=== PATIENT | male | born 1945 | race Caucasian/White ===

== ENCOUNTER 2017-11-15 18:39 | Emergency (ER) | payer MEDICARE ==
[2017-11-15] MEDS ORDERED: Lorazepam 2 MG/ML VIAL ONE (21:16)
--- NOTE | 2017-11-16 06:35 | HP ---
SHORT STAY SUMMARY DATE OF EVALUATION: 11/16/2017 TIME OF SERVICE: 0100 hours. SHORT STAY SUMMARY CHIEF COMPLAINT: Found down. HISTORY OF PRESENT ILLNESS: Mr. Mccauley is a 72-year-old gentleman who was found down in the yusuf g lot of the [facility]. It was unknown how long he was down. He was seen and e valuated and found to have abnormal labs including lactic acid of 4 and an allegedly a temperature of 102. He subsequently transferred here for treatment. The patient states he was going to see Dr. Yadav, and was supposed to be there before 3 o'clock. When he finally got to where he was going, so they transported him here and "trick him." The patient know s it is 2018, knows Khurram is the President, knows that he is in [facility], but unsure [facility], and per his daughter it is normal baseline mental status. The patient adamantly refused to be admitted and told me to "get the f--- out of the room." Apparently, the patient has been sick for a few days until he got a flu-like illness. Even sent his daughter a picture of a gun and threatened to kill himself a few days ago. She has called the police and sent him out to the house several times they were evaluated, but he was safe to remain home by h imself. The outside ER received ceftriaxone, levofloxacin, and Zosyn. Temperature was 102, pulse was 110, la ctic acid of 4. Normal white blood cell count was transported here. While here, we are called for a dmit, no further workup was done. PAST MEDICAL HISTORY: 1. Chronic kidney disease, status post renal transplant x2, on cyclosporine and prednisone. 2. Chronic low back pain. 3. History of pancreatitis. 4. History of skin cancer of the face. 5. Urinary retention. PAST SURGICAL HISTORY: Include: 1. Renal transplant x2. 2. Nine other major surgeries, though he was too angry to elaborate. HOME MEDICATIONS: 1. Per the list, vitamin D3, Neoral or cyclosporine. 2. Folic acid. 3. Mag oxide. 4. Jasper 3. 5. Prednisone. 6. Amlodipine. 7. Fenofibrate. 8. Atenolol. 9. Docusate. 10. Aspirin 81 mg daily. ALLERGIES: NKDA. FAMILY HISTORY: Negative for clotting or bleeding. There was no immune dysfunction. SOCIAL HISTORY: Daughter said he drinks whiskey daily. No IV drug use or tobacco use. The patient refused to discuss code status with me. His daughter is Darvin Jonas" her phone number is [phone]. The patient is from his and he had 2 children and his older nimo newton, his son, has already passed. Ms. 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 PHYSICAL EXAMINATION: VITAL SIGNS: Temperature 98.3, pulse 95, blood pressure 110/67, respiratory 18, O2 sat 97% on room a ir. GENERAL: He is awake. He is alert. He is oriented to month, year, president, and city. He is unwi lling to discuss any further orientation as he "does need to be educated anymore." HEENT: He is normocephalic. He has evidence of ecchymosis over the right eye. Mucous members are m oist. There is no visible lesion. No thrush. NECK: Supple, no lymphadenopathy, JVD, or thyromegaly. LUNGS: Some faint bibasilar crackles, worse on the left than the right. He has good air movement. No prolonged expiratory phase. No wheezes. ABDOMEN: Soft, is nontender with good bowel sounds. EXTREMITIES: Show cyanosis, no clubbing, no edema. NEUROLOGIC: Status could not be assessed as he would not follow any commands. SKIN: No other rash or lesions noted. MUSCULOSKELETAL: Normal to a brief inspection. I do not see any inflamed joints or ecchymosis other ford. LABORATORY DATA: Sodium 128, potassium 5.1, chloride 97, bicarbonate 16, BUN 41, creatinine 1.5 and glucose of 121, calcium 9.8. Liver functions are normal. Total bilirubin slightly elevated at 2.4, total protein 6.9, albumin 2.6. CBC showed a white count of 10 with normal differential, hemoglobin 7.9, hematocrit of 22.8 and platelet count of 112,000. Ammonium was 17, lactic acid 4.0. CK-MB 1.5, troponin I 0.033 and urinalysis was negative. Chest x-ray showed left lower lobe pneumonia per report, although I did not see the actual report its elf just on the ER notes. ASSESSMENT AND PLAN: 1. Left lower lobe pneumonia, community-acquired, present on admission to the ER. Patient had a flu -like illness. A flu screen at the outside facility was negative. The patient was transferred here after being found down and unconscious in the parking lot. The patient is currently awake and has baseline mental status. He is refusing admit. I discussed wi th him leaving against medical advice. He said he is absolutely leaving and not staying. I did ask him to sign the against medical advice paperwork and he adamantly refused. His daughter was in the r oom and noted so and signed as a witness. We will go ahead and send him home on Levaquin 500 mg marissa y for 7 days, and he is to follow up with Dr. Yadav as soon as possible. 2. Chronic obstructive pulmonary disease, status post renal transplant, on Neoral and prednisone. H e is to continue. 3. Fall from same level. Daughter says he has a lot of problem with the right ankle after surgery m any years ago. The patient himself was unwilling to discuss any problems or preceding issues. 4. History of urinary retention. 5. History of hypertension on atenolol and amlodipine. Recommend to continue. The patient being discharged from the emergency department against medical advice. This will serve a s the admission history and physical and the discharge summary.
== END 2017-11-15 21:45 | disposition left against medical advice (07) ==
LOC: ERS 18:39 → ERHOLD 21:45 → UNDOADMIN 22:00 → ERHOLD 22:00 → UNDODISIN 11-16 01:15
DX: J18.9 Pneumonia, unspecified organism (principal); J44.0 Chronic obstructive pulmonary disease with (acute) lower respiratory infection; Z94.0 Kidney transplant status; I12.9 Hypertensive chronic kidney disease with stage 1 through stage 4 chronic kidney disease, or unspecified chronic kidney disease; N18.9 Chronic kidney disease, unspecified; Z85.828 Personal history of other malignant neoplasm of skin; Z79.82 Long term (current) use of aspirin
CPT/HCPCS: 96374; J2060

== ENCOUNTER 2018-08-12 19:38 | Inpatient (IN) | payer MEDICARE ==
[2018-08-12] MEDS ORDERED: Ondansetron HCl/PF 4 MG/2 ML Vial ONE (20:19)
[2018-08-12] MEDS ORDERED: Nitroglycerin 2% Ointment 1 INCH/1 GM Packet ONE (21:08)
[2018-08-12] MEDS ORDERED: hydrALAZINE 20 MG/ML VIAL SLOW IVP SCH (21:30)
[2018-08-12] MEDS ORDERED: hydrALAZINE 20 MG/ML VIAL SLOW IVP PRN (23:09)
[2018-08-12 23:12] VITALS: BMI 22.0
[2018-08-12] MEDS: Lactated Ringer's 1,000 ML IV SCH (23:24)
[2018-08-12 23:40] LABS: Cardiac Risk 2.4 (Less than 4.5)
[2018-08-13] MEDS ORDERED: Acetaminophen 325 MG TAB PO PRN (02:01)
[2018-08-13] MEDS ORDERED: Ondansetron HCl/PF 4 MG/2 ML Vial IVP PRN (02:01)
[2018-08-13] MEDS ORDERED: Bisacodyl 5 MG TAB PO PRN (02:01)
[2018-08-13] MEDS ORDERED: Morphine 4 MG/ML VIAL ONE (05:29)
[2018-08-13] MEDS: Lactated Ringer's 1,000 ML IV SCH (05:37)
[2018-08-13 06:27] LABS: Anion Gap 16 mmol/L (10-20); BUN (Urea Nitrogen) 36 mg/dL (8.4-25.7); BUN/Creatinine Ratio 10.75; Calc. Creatinine Clearance 19 mL/min (70-130); Calcium 8.9 mg/dL (7.8-10.44); Carbon Dioxide 17 mmol/L (23-31); Chloride 104 mmol/L (98-107); Estimated GFR-MDRD 18; Glucose 217 mg/dL (83-110); Phosphorus 4.6 mg/dL (2.3-4.7); Potassium 6.1 mmol/L (3.5-5.1); Sodium 131 mmol/L (136-145)
[2018-08-13 07:00] LABS: Anisocytosis SLIGHT = 6-15 cells (100X) (0-5/hpf); Band 6 % (5-11); Crenated RBC SLIGHT = 1-5 cells (100X) (None Seen); Hemoglobin 10.1 g/dL (14.0-18.0); Hypochromia SLIGHT = 6-15 cells (100X) (0-5/hpf); Lymphocytes 2 % (21-51); MDiff Complete? YES; Macrocytosis SLIGHT = 6-15 cells (100X) (0-5/hpf); Mean Corpuscular HGB CONC 33.4 g/dL (32.0-36.0); Mean Corpuscular Hemoglobin 35.6 pg (27.0-31.0); Mean Platelet Volume 13.6 fL (7.4-10.4); Monocytes 9 % (0-10); Neutrophil 83 % (42-75); PLT Morphology Comment Appears Decreased; Platelet Count 42 thou/uL (130-400); RBC Distribution Width 16.4 % (11.5-14.5); Red Blood Cell (RBC) Count 2.85 mill/uL (4.70-6.10); Tear Drops SLIGHT = 2-5 cells (100X) (0-1/hpf); White Blood Cell (WBC) Count 24.3 thou/uL (4.8-10.8)
--- NOTE | 2018-08-13 08:46 | HP ---
CHIEF COMPLAINT: Abdominal pain radiating to the back and the patient has been transferred from [place] for pancreatitis. HISTORY OF PRESENT ILLNESS: This is a 72-year-old male with past medical history of cholecystitis, low back pain, pancreatitis, generalized muscle weakness, being admitted for abdominal pain radiating to the back. The patient stated that he was having severe epigastric pain, which began at 0900 the morning of admission and therefore the patient went to [place] and in the ED, the patient was discovered to have acute pancreatitis. The patient denies fever , chills, headaches, chest pain, palpitations, shortness of breath; however, admits to epigastric pain. REVIEW OF SYSTEMS: Positive for epigastric pain, otherwise as documented in HPI. All other systems were reviewed and are negative. PAST MEDICAL HISTORY: Cholecystitis, chronic kidney disease, low back pain, pancreatitis. FAMILY HISTORY: Reviewed and non-contributory to this visit. PAST SURGICAL HISTORY: Two kidney transplants. PSYCHIATRIC HISTORY: No psychiatric history. SOCIAL HISTORY: The patient drinks every day. The patient drinks 5 shots per day, but patient denies any smoking history. ALLERGIES: RAPAMUNE and SIROLIMUS. CURRENT MEDICATIONS: The patient is on vitamin D, mineral, magnesium 400 mg, amlodipine 5 mg, fenofibrate 150 mg, atenolol 50 mg, docusate calcium 240 mg, aspirin 81 mg. PHYSICAL EXAMINATION: VITAL SIGNS: Blood pressure is 203/104, heart rate is 96, respiratory rate 24, temperature of 98.2. GENERAL: The patient is lying in bed, appears to be very anxious, somewhat a little agitated. HEENT: Normocephalic, atraumatic. Pupils are equal, round, and reactive to light. Extraocular movements are intact. No scleral icterus. NECK: Trachea is midline. No JVD. Full range of motion. Mucous membranes are dry. LUNGS: Clear to auscultation bilaterally. No wheezing, no rales, no rhonchi is appreciated. CARDIOVASCULAR: Positive S1, S2, regular rate and rhythm, no murmurs, no gallops or rubs appreciated. ABDOMEN: Patient has severe tenderness with palpation at the abdomen, otherwise positive bowel sounds. No peritoneal signs. No palpable masses. EXTREMITIES: The patient has 5/5 upper extremity strength, good pulses bilaterally, 5/5 lower extremity strength, good pulses bilaterally. NEUROLOGIC: Cranial nerves II through XII grossly intact. No neurologic deficits noted. SKIN: Warm, dry, and intact. PSYCHIATRIC: The patient has normal affect. Alert and oriented x3. MEDICATIONS: Hydralazine 10 mg, nitro 1 inch, lactated Ringer's intravenously 150 mL per hour, morphine 4 mg, Zofran 4 mg was given in the ED. LABORATORY DATA: WBC is 24.3, hemoglobin is 10.1, hematocrit 30.4, platelets 42. Sodium is 131, potassium 6.1, carbon dioxide 17, anion gap of 16, BUN is 36 , creatinine is 3.35, glucose of 217, phosphorus of 4.6, albumin of 3.0 IMAGING: CT of the abdomen showed pancreatitis. ASSESSMENT AND PLAN: This is a 72-year-old male being admitted for acute pancreatitis, likely due to alcohol use. At this point, restart the patient on lactated Ringer's at 150 mL. We will monitor the patient very closely since the patient has chronic kidney disease stage 4, heading into end-stage renal disease. We will continue supportive care. We will give the patient morphine for pain and we will monitor closely. 2. Systemic inflammatory response syndrome secondary to pancreatitis. We will continue the patient on current management. 3. Ethanol abuse. We have advised the patient to quit drinking. 4. Hypertension, uncontrolled. The patient appears to be noncompliant with his medication. We will do hydralazine p.r.n. and nitro to reduce the patient' s blood pressure. 5. Status post kidney transplant. At this point, the patient's creatinine is 3.35. It seems like the patient is not taking care of his kidneys. We will consult with Nephrology and proceed further with their recommendations. 2. Deep venous thrombosis and gastrointestinal prophylaxis. MTDD
[2018-08-13] MEDS ORDERED: Fenofibrate Nanocrystallized 145 MG TAB PO SCH (09:00)
[2018-08-13] MEDS ORDERED: predniSONE 5 MG TAB PO SCH (09:00)
[2018-08-13] MEDS ORDERED: Atenolol 25 MG TAB PO SCH (09:00)
[2018-08-13] MEDS ORDERED: Amlodipine 5 MG TAB PO SCH (09:00)
[2018-08-13] MEDS: Morphine 2 MG/ML SYRINGE SLOW IVP PRN ×3 (11:35→20:52)
[2018-08-13] MEDS: Docusate Calcium (SURFAK) 240 MG CAP PO SCH (12:38)
[2018-08-13] MEDS: Fish Oil 1,000 MG CAP PO SCH (12:39)
[2018-08-13] MEDS: Famotidine/PF 20 mg/2ml Vial SLOW IVP SCH ×2 (12:39→20:48)
[2018-08-13] MEDS: Magnesium Oxide 400 MG TAB PO SCH (12:40)
[2018-08-13] MEDS: Heparin 5,000 UNITS/ML VIAL SC SCH ×2 (12:40→20:49)
[2018-08-13] MEDS: Albumin 25% 25 GM/100 ML BOT IVPB SCH ×2 (14:08→18:27)
--- NOTE | 2018-08-13 15:19 | CON ---
DATE OF CONSULTATION: 08/13/2018 RENAL MEDICINE HISTORY OF PRESENT ILLNESS: Mr. Mccauley is a 72-year-old white male who is status post renal transp lant x2 secondary to end-stage renal disease from biopsy proven IgA nephropathy and admitted for acut e pancreatitis. He was also noted to be in acute kidney injury. For that reason, renal consultation has been done. REVIEW OF SYSTEMS: Positive for epigastric pain, positive for nausea, but no vomiting, no diarrhea, no constipation, no productive cough, no fever or chills, no syncopal episode, no melena, no hemateme sis, occasional joint pains, no headache, no sore throat. HOME MEDICATIONS: Includes the following; amlodipine 5 mg daily, aspirin 81 mg tab once a day, Tenor min 25 mg once a day, vitamin D3 2000 international units daily, Surfak 240 mg daily, fenofibrate 145 mg once a day, magnesium oxide 400 mg once a day, omega 3 fatty acid 1 capsule daily, ranitidine 150 mg p.o. b.i.d., cyclosporine - modified - Neoral 150 mg p.o. b.i.d., prednisone 5 mg once a day, tra zodone 50 mg at bedtime. PAST MEDICAL HISTORY: 1. Hypertension. 2. Status post renal transplant. 3. Insomnia. 4. History of heavy alcohol intake. 5. DJD. PAST SURGICAL HISTORY: 1. Status post renal biopsy. 2. Status post hemodialysis. 3. Status post AV fistula placement. 4. Status post cuffed hemodialysis catheter placement. 5. Status post colonoscopy. 6. Status post renal transplant x2. 7. Status post ankle surgery. 8. Status post bilateral shoulder surgery. SOCIAL HISTORY: The patient lives in [place]. He is . He has 2 children with one d. 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 Education high school. No history of sm oking. Positive intake of alcohol, no IV drug abuse. ALLERGIES: None. TRAUMA: Status post right collar bone fracture, status post immunizations. HOSPITALIZATIONS: Please see past medical history. PHYSICAL EXAMINATION: VITAL SIGNS: Blood pressure is 173/86, heart rate 75, respiratory rate 20, temperature 98.2, pulse o x 98%. GENERAL: Awake, alert, comfortable, not in overt distress. SKIN: Decreased turgor. HEENT: He has slightly pale conjunctivae, anicteric sclerae. NECK: No neck mass, no carotid bruits, no JVD. CHEST: No deformities. LUNGS: Clear breath sounds, no wheezing, no crackles. HEART: Normal sinus rhythm. No murmurs, no gallops, no rubs. ABDOMEN: Globular, soft, nontender, no masses. EXTREMITIES: No edema, no deformities. Renal allograft is nontender. NEUROLOGIC: Moving all extremities. No tremors. Decreased hearing. LABORATORY DATA: Laboratories of 08/13/2018; white count 24.3, hemoglobin 10.1. Sodium 131, potassi um 6.1, chloride 104, carbon dioxide 17, BUN 36, creatinine 3.35, calcium 8.9, phosphorus 4.6 and alb umin 3.0. ASSESSMENT AND PLAN: 1. Acute pancreatitis, supportive care. Currently, n.p.o. Receiving volume repletion of normal jade ine 150 mL an hour. I will probably add salt poor albumin 25 grams IV q.6. 2. Acute kidney injury - most likely hemodynamically mediated renal dysfunction. We will be reviewi ng urinalysis and urine chemistry with this patient. Continue IV hydration. I added salt poor album in 25 grams IV q.6 for the next 3 days. 3. Status post renal transplant - continue current immunosuppressive regimen. Currently on Neoral 1 00 mg p.o. b.i.d. and prednisone 5 mg tab once a day. He has underlying ESRD was from an IgA nephrop athy. Continue supportive care. We will also check a base met and a cyclosporine level in a.m.
[2018-08-13 15:32] LABS: Bilirubin Negative (Negative); Blood, Urine Large (Negative); Clarity CLEAR (Clear); Glucose, Urine (Dipstick) 250 mg/dL (Negative); Leukocyte Negative (Negative); Nitrite Negative (Negative); Protein, Urine (Dipstick) 100 mg/dL (Neg-Trace); Urobilinogen 0.2 mg/dL (0.2-1.0)
[2018-08-13 15:33] LABS: Bacteria/HPF None Seen HPF (None Seen); Hyaline Casts/LPF 4-6 HYALINE CAST LPF (0-3 Hyaline); Pathc Cast-AUWi Flag 0.58 (0-2.49); Squamous Epithelial 0-3 HPF (0-3)
[2018-08-13 15:36] LABS: Sperm-AUWi Flag 46.8 (0-9.9)
[2018-08-13] MEDS ORDERED: Labetalol HCl 100 MG/20 ML VIAL SLOW IVP PRN (15:45)
[2018-08-13] MEDS ORDERED: hydrALAZINE 20 MG/ML VIAL SLOW IVP PRN (15:45)
[2018-08-13 15:46] LABS: Sperm/HPF 1+ HPF (None Seen)
[2018-08-13 15:55] LABS: Creatinine, Urine 30.01 mg/dL (63-166)
[2018-08-13 16:29] LABS: Potassium 5.5 mmol/L (3.5-5.1)
[2018-08-13] MEDS ORDERED: Lorazepam 2 MG/ML VIAL SLOW IVP PRN (16:32)
--- NOTE | 2018-08-13 16:37 | PDOC.PN ---
- Subjective Encounter Start Date: 08/13/18 Encounter Start Time: 16:35 Mr. Mccauley was seen today in follow-up of Pancreatitis. He says he continues to have 9/10 abdominal pain. - Objective Resuscitation Status: Resuscitation Status FULL:Full Resuscitation MAR Reviewed: Yes Vital Signs & Weight: Vital Signs (12 hours) Temp Pulse Resp BP Pulse Ox 08/13/18 12:55 97.7 F 93 18 164/84 H 95 08/13/18 12:38 75 08/13/18 08:49 98.2 F 75 20 173/86 H 98 Weight Weight 149 lb 5.76 oz I&O: 08/12/18 08/13/18 08/14/18 06:59 06:59 06:59 Intake Total 682 Balance 682 Result Diagrams: 08/13/18 05:44 08/13/18 16:03 Phys Exam - Physical Examination HEENT: PERRLA Respiratory: no wheezing, no rales, no rhonchi, clear to auscultation bilateral Cardiovascular: RRR, no significant murmur, no rub Gastrointestinal: soft, positive bowel sounds + diffuse tenderness, mildly distended Musculoskeletal: no edema Dx/Plan (1) Acute pancreatitis Code(s): K85.90 - ACUTE PANCREATITIS WITHOUT NECROSIS OR INFECTION, UNSP Status: Acute (2) Acute on chronic kidney failure Code(s): N17.9 - ACUTE KIDNEY FAILURE, UNSPECIFIED; N18.9 - CHRONIC KIDNEY DISEASE, UNSPECIFIED Status: Acute (3) Alcohol abuse Code(s): F10.10 - ALCOHOL ABUSE, UNCOMPLICATED Status: Chronic (4) IgA nephropathy Code(s): N02.8 - RECURRENT AND PERSISTENT HEMATURIA W OTH MORPHOLOGIC CHANGES Status: Chronic (5) HTN (hypertension) Code(s): I10 - ESSENTIAL (PRIMARY) HYPERTENSION Status: Chronic (6) S/P kidney transplant Code(s): Z94.0 - KIDNEY TRANSPLANT STATUS Status: Chronic (7) Hyperkalemia Code(s): E87.5 - HYPERKALEMIA Status: Acute - Plan * Acute pancreatitis- continue bowel rest, IV Analgestics, and Antiemetics * Acute renal failure- likely from pancreatitis,- continue IV fluids, and Nephrology managing * HTN- Hydralazine IV as needed * Alcohol Abuse- will place on ASE Protocol, and Ativan as needed, Thiamine and Folic Acid * History of renal transplant- continue transplant medications * Hyerkalemia- repeat potassium- hopefully this will improve with hydration.
[2018-08-13 16:42] LABS: Lipase 2260 U/L (8-78)
[2018-08-13] MEDS ORDERED: Thiamine HCl 200 MG/2 ML VIAL SLOW IVP SCH (17:00)
[2018-08-13] MEDS: cycloSPORINE, Modified 100 MG CAP PO SCH (20:49)
[2018-08-13] MEDS ORDERED: traZODone HCl 50 MG TAB PO SCH (21:00)
[2018-08-13 23:56] LABS: Actual Bicarbonate (HCO3a) 8.7 mEq/L (22-28); Base Excess (BEa) -21.4 mEq/L (-2.0 to +3.0); CO2 Tension 36.9 mmHg (35.0-45.0); Calcium, Ionized 1.21 mmol/L (1.12-1.30); Carboxyhemoglobin (COHb) 1.2 gm% (0.0-3.0); Potassium - ABG Lab 5.47 mmol/L (3.70-5.30)
[2018-08-13 23:58] LABS: pH, Arterial 6.99 (7.35-7.45)
[2018-08-13 23:59] LABS: ALV-art Gradient 15.605 (0-20); Puncture Site RBR
[2018-08-14] MEDS ORDERED: Sodium Bicarb 50 MEQ/50 ML Abboject 8.4% SYRINGE ONE (00:05)
[2018-08-14] MEDS ORDERED: Etomidate 20 MG/10 ML VIAL ONE (00:05)
[2018-08-14] MEDS ORDERED: DOPamine/D5W 400 mg/250 ml PREMIX ONE (00:05)
[2018-08-14 00:29] LABS: Band 16 % (5-11); Hemoglobin 8.6 g/dL (14.0-18.0); Lymphocytes 5 % (21-51); MDiff Complete? YES; Mean Corpuscular HGB CONC 32.1 g/dL (32.0-36.0); Mean Corpuscular Hemoglobin 35.7 pg (27.0-31.0); Mean Platelet Volume 8.1 fL (7.4-10.4); Monocytes 8 % (0-10); Neutrophil 71 % (42-75); PLT Morphology Comment Appears Decreased; Platelet Count 51 thou/uL (130-400); RBC Distribution Width 16.7 % (11.5-14.5); Red Blood Cell (RBC) Count 2.42 mill/uL (4.70-6.10); White Blood Cell (WBC) Count 15.1 thou/uL (4.8-10.8)
[2018-08-14 00:32] LABS: ALT (SGPT) 47 U/L (8-55); AST (SGOT) 162 U/L (5-34); Albumin 3.4 g/dL (3.4-4.8); Alkaline Phosphatase 39 U/L (40-150); Anion Gap 28 mmol/L (10-20); BUN (Urea Nitrogen) 42 mg/dL (8.4-25.7); Bilirubin, Total 4.3 mg/dL (0.2-1.2); Calc. Creatinine Clearance 15 mL/min (70-130); Calcium 8.8 mg/dL (7.8-10.44); Carbon Dioxide 10 mmol/L (23-31); Chloride 104 mmol/L (98-107); Estimated GFR-MDRD 14; Magnesium 4.5 mg/dL (1.6-2.6); Potassium 5.5 mmol/L (3.5-5.1); Protein, Total 5.4 g/dL (5.8-8.1); Sodium 136 mmol/L (136-145)
[2018-08-14 00:39] LABS: Glucose 52 mg/dL (83-110)
[2018-08-14] MEDS ORDERED: Heparin 25,000 units/D5W 500 ML IV SCH (00:45)
[2018-08-14] MEDS ORDERED: Heparin 10,000 UNITS/ 10 ML VIAL SLOW IVP SCH (00:45)
[2018-08-14] MEDS ORDERED: Lorazepam 2 MG/ML VIAL SLOW IVP SCH ×2 (00:45→01:00)
[2018-08-14] MEDS ORDERED: Fentanyl BOLUS 250 ML IVPB PRN (00:50)
[2018-08-14] MEDS ORDERED: Lorazepam 2 MG/ML VIAL SLOW IVP PRN (00:50)
[2018-08-14] MEDS ORDERED: fentaNYL Citrate/PF 2,000 MCG in Sodium Chloride 0.9% 60 ML IV SCH (00:50)
[2018-08-14] MEDS ORDERED: DISCONTINUE PREVIOUS NARCOTIC PAIN MEDICATIONS AND BENZODIAZEPINES FS SCH (00:50)
[2018-08-14] MEDS ORDERED: Propofol BOLUS 1,000 MG/100 ML VIAL IV PRN (00:50)
[2018-08-14] MEDS ORDERED: Propofol 1,000 MG/100 ML VIAL IV PRN (00:50)
[2018-08-14 01:14] LABS: Lactic Acid Greater than 13.4 mmol/L (0.5-2.2)
[2018-08-14] MEDS ORDERED: Fentanyl 100 MCG/2 ML VIAL ONE (01:19)
[2018-08-14] MEDS ORDERED: Norepinephrine 8 MG/0.9% NS 250 ML ONE (01:20)
[2018-08-14 01:29] LABS: PTT 42.6 SEC (22.9-36.1)
[2018-08-14 01:30] LABS: INR-International Normal Ratio 4.1
[2018-08-14] MEDS ORDERED: Sodium Chloride 0.9% 1,000 ML IV SCH (02:00)
[2018-08-14 02:03] LABS: Base Excess (BEa) -15.5 mEq/L (-2.0 to +3.0); Calcium, Ionized 1.15 mmol/L (1.12-1.30); Carboxyhemoglobin (COHb) 2.1 gm% (0.0-3.0); Hemoglobin (Hb) 8.9 g/dL (14.0-18.0); O2 Tension (PaO2) 92.2 mmHg (> 70.0); Potassium - ABG Lab 4.87 mmol/L (3.70-5.30); pH, Arterial 7.26 (7.35-7.45)
[2018-08-14] MEDS ORDERED: Dextrose 50% Abboject 50 ML SYRINGE ONE (02:07)
[2018-08-14] MEDS: Albumin 25% 25 GM/100 ML BOT IVPB SCH ×3 (02:27→14:50)
[2018-08-14] MEDS: Norepinephrine 8 MG/250 ML BAG IVPB PRN ×3 (02:28→12:18)
[2018-08-14 02:32] LABS: Puncture Site RBRACH
[2018-08-14] MEDS ORDERED: Vancomycin HCl 1 GM in Premix Bag 1 BAG IVPB SCH (04:00)
[2018-08-14 04:04] LABS: Anion Gap 28 mmol/L (10-20); BUN (Urea Nitrogen) 43 mg/dL (8.4-25.7); CKMB 31.3 ng/mL (0-6.6); Calc. Creatinine Clearance 15 mL/min (70-130); Calcium 8.5 mg/dL (7.8-10.44); Carbon Dioxide 11 mmol/L (23-31); Chloride 103 mmol/L (98-107); Estimated GFR-MDRD 14; Glucose 131 mg/dL (83-110); Lipase Greater than 1000 U/L (8-78); Magnesium 4.9 mg/dL (1.6-2.6); Phosphorus 7.3 mg/dL (2.3-4.7); Potassium 4.5 mmol/L (3.5-5.1); Sodium 137 mmol/L (136-145); Troponin I 9.448 ng/mL (< 0.028)
[2018-08-14 04:14] LABS: Band 29 % (5-11); Burr Cells MODERATE= 6-15 cells (100X) (0-1/hpf); Hemoglobin 7.6 g/dL (14.0-18.0); Lymphocytes 2 % (21-51); MDiff Complete? YES; Mean Corpuscular HGB CONC 32.5 g/dL (32.0-36.0); Mean Corpuscular Hemoglobin 35.5 pg (27.0-31.0); Mean Platelet Volume 13.3 fL (7.4-10.4); Metamyelocyte 2 % (0-0); Monocytes 6 % (0-10); Neutrophil 61 % (42-75); PLT Morphology Comment Appears Decreased; Platelet Count 38 thou/uL (130-400); RBC Distribution Width 16.8 % (11.5-14.5); Red Blood Cell (RBC) Count 2.14 mill/uL (4.70-6.10); White Blood Cell (WBC) Count 9.6 thou/uL (4.8-10.8)
[2018-08-14] MEDS ORDERED: Meropenem 500 MG in Sodium Chloride 0.9% 100 ML IVPB SCH (06:00)
--- NOTE | 2018-08-14 06:29 | PDOC.EVN ---
Event Note - Event Note Event Note: BEAUTY OPERATOR APPRENTICE was called ~ 2335 Patient is admitted for acute pancreatitis. Per nursing staff patient was ok 10 minutes before code was called. Patient became altered, rolling his eyes to the right and had acute change in baseline. Vitals: first BP 60 systolic, HR 90's, Temp 97, Glucose 180's, O2 of 98 on nasal canula. On Evaluation: Patient is AOx O, Moving both upper extremity and lower extremity spontaneously. +s1/s2 no murmurs, lung sounds were clear. mottled lower extremity and cold. Labs/ EKG: showed anterior and lateral inverted T wave abnormality concerning for [place]. Troponins ordered showed trops of 9. Assessment/plan and change of events: Cardiology consulted. ED physicians consulted to get a central line on patient. ABG was ordered which showed PH of 6.9 pco2 8 and po2 of 88. Bicarb was given by the bedside stat. Bicarb was ordered in D5 1/2 NS + 75 bicarb maintenance. Lactated rings fluids were bolused. Dopamine was started while patient was getting a central line. BP rechecked and 150's systolic. while all this was happening Patient was started on NSTEMI protocol and Fisher Line was made aware. We contacted Dr. Abarca, semiconductor packages leak tester and made him aware of patients condition. Always contacted ICU incinerator plant supervisor. All physicians agreed on current management at the time. Central line was place. levophed was started and dopamine discontinued. At this time patient BP was stable so we proceeded to intubated the patient since patient was at this time saturating at low 90's on a non-rebreather. Stat X-ray was ordered to check placements of lines and tubes. Patent was sent for CT of the head which was negative. Heparin cardio protocol without bolus started. Lactulose was started due to elevated ammonia levels and alteration of awareness. Vanc/ zosyn was started as patient is in shock with lactic acid of 16. sedation protocol started. D5 amps given due to hypoglycemia of 32 when patient was taken to ICU. Ofnote: patient never went into cardiac arrest. There were times that pulse were weak to be appreciated by some of team members but patient had pulses throughout, Never was patient in PEA. Patient rhythm was sinus at all times and I appreciated patients cardiac activity at the apex on auscultation. BP was at times difficult to obtain but on pressors patient BP was >100 systolic at all times. Patient's prognosis is guarded at this time. Note by Dr. Jose Garduno, Do Critical care time ~ 120mins
--- NOTE | 2018-08-14 06:48 | PDOC.EVN ---
Event Note - Event Note Event Note: Addendum: initial Gas PH 6.9 PCO2 36.9 pO2 88. the Bicarb in the serum was ~ 11.
[2018-08-14 07:10] LABS: CKMB 41.3 ng/mL (0-6.6); Troponin I 10.318 ng/mL (< 0.028)
[2018-08-14 07:38] LABS: Actual Bicarbonate (HCO3a) 10.4 mEq/L (22-28); Base Excess (BEa) -13.9 mEq/L (-2.0 to +3.0); Calcium, Ionized 1.09 mmol/L (1.12-1.30); Carboxyhemoglobin (COHb) 2.6 gm% (0.0-3.0); Hemoglobin (Hb) 7.3 g/dL (14.0-18.0); O2 Tension (PaO2) 62.7 mmHg (> 70.0); Potassium - ABG Lab 4.14 mmol/L (3.70-5.30); pH, Arterial 7.34 (7.35-7.45)
[2018-08-14 07:41] LABS: ALV-art Gradient 412.025 (0-20); CO2 Tension 19.5 mmHg (35.0-45.0); Puncture Site RRA
[2018-08-14] MEDS ORDERED: Folic Acid 1 MG TAB PO SCH (09:00)
[2018-08-14] MEDS ORDERED: Clopidogrel Bisulfate 75 MG TAB PO SCH (09:00)
[2018-08-14] MEDS ORDERED: Albumin 5% 0 ML ONE ×2 (09:27→09:58)
--- NOTE | 2018-08-14 09:45 | PDOC.PN ---
- Subjective Encounter Start Date: 08/14/18 Encounter Start Time: 09:43 Mr. Mccauley was seen today in follow-up. The events of last night were noted. The patient decompensated and was intubated. He has developed worsening renal failure, and has elevated troponin levels. - Objective Resuscitation Status: Resuscitation Status FULL:Full Resuscitation MAR Reviewed: Yes Vital Signs & Weight: Vital Signs (12 hours) Temp Pulse Pulse Pulse Pulse Pulse Resp 08/14/18 07:21 78 08/14/18 07:00 97.9 F 08/14/18 06:00 97.5 F L 30 H 08/14/18 05:00 93.8 F L 08/14/18 04:00 93.3 F L 30 H 08/14/18 02:30 08/14/18 02:00 97.3 F L 30 H 08/14/18 01:55 83 08/14/18 00:00 97.9 F 94 18 08/13/18 23:38 89 122 H 95 91 08/13/18 23:30 Resp Resp Resp Resp BP BP BP 08/14/18 07:21 85/61 L 08/14/18 07:00 08/14/18 06:00 08/14/18 05:00 08/14/18 04:00 93/34 L 08/14/18 02:30 08/14/18 02:00 08/14/18 01:55 08/14/18 00:00 08/13/18 23:38 18 18 16 18 114/80 152/71 H 08/13/18 23:30 BP BP BP Pulse Ox Pulse Ox Pulse Ox Pulse Ox 08/14/18 07:21 08/14/18 07:00 08/14/18 06:00 08/14/18 05:00 08/14/18 04:00 08/14/18 02:30 99 08/14/18 02:00 08/14/18 01:55 08/14/18 00:00 105/51 L 08/13/18 23:38 105/51 L 60/37 L 91 L 96 94 L 08/13/18 23:30 98 Pulse Ox 08/14/18 07:21 08/14/18 07:00 08/14/18 06:00 08/14/18 05:00 08/14/18 04:00 08/14/18 02:30 08/14/18 02:00 08/14/18 01:55 08/14/18 00:00 08/13/18 23:38 96 08/13/18 23:30 Weight Weight 152 lb 8.958 oz Most Recent Monitor Data Heart Rate from ECG 79 NIBP 80/57 NIBP BP-Mean 64 Respiration from ECG 30 SpO2 90 I&O: 08/13/18 08/14/18 08/15/18 06:59 06:59 06:59 Intake Total 682 1763.9 0 Output Total 80 0 Balance 682 1683.9 0 Result Diagrams: 08/14/18 03:10 08/14/18 03:10 Additional Labs: Accuchecks 08/14/18 08/13/18 06:19 23:42 POC Glucose 195 H 185 H Phys Exam - Physical Examination HEENT: PERRLA Respiratory: no wheezing + rhonchi bilaterally Cardiovascular: RRR, no significant murmur, no rub no gallop Gastrointestinal: soft, no distention bowel sounds are diminished, no organomegaly Musculoskeletal: edema present + bilateral lower extremity edema Dx/Plan (1) Acute pancreatitis Code(s): K85.90 - ACUTE PANCREATITIS WITHOUT NECROSIS OR INFECTION, UNSP Status: Acute (2) Acute respiratory failure with hypoxia Code(s): J96.01 - ACUTE RESPIRATORY FAILURE WITH HYPOXIA Status: Acute (3) NSTEMI (non-ST elevated myocardial infarction) Code(s): I21.4 - NON-ST ELEVATION (NSTEMI) MYOCARDIAL INFARCTION Status: Acute (4) Acute on chronic kidney failure Code(s): N17.9 - ACUTE KIDNEY FAILURE, UNSPECIFIED; N18.9 - CHRONIC KIDNEY DISEASE, UNSPECIFIED Status: Acute (5) Alcohol abuse Code(s): F10.10 - ALCOHOL ABUSE, UNCOMPLICATED Status: Chronic (6) IgA nephropathy Code(s): N02.8 - RECURRENT AND PERSISTENT HEMATURIA W OTH MORPHOLOGIC CHANGES Status: Chronic (7) HTN (hypertension) Code(s): I10 - ESSENTIAL (PRIMARY) HYPERTENSION Status: Chronic (8) S/P kidney transplant Code(s): Z94.0 - KIDNEY TRANSPLANT STATUS Status: Chronic (9) Hyperkalemia Code(s): E87.5 - HYPERKALEMIA Status: Acute (10) Acute anemia Code(s): D64.9 - ANEMIA, UNSPECIFIED Status: Acute - Plan * Acute respiratory failure with Hypoxemia- Patient is now intubted- discussed with Dr. Simms he has evidence of vascular congestion- Continue Vent Support, and Empiric antibiotics. * NSTEMI- I suspect this may be demand ischemia- Cardiology has been consulted- will check an Echo. He has a coagulopathy likely from alcoholic liver disease- therefore agree with discontinuing Heparin * Acute kidney failure- worsened- likely due to third spacing from pancreatitis * Pancreatitis- Will continue IV fluids- and consult GI * Agree with empiric antibiotics * Hyperkalemia- improved, stable from yesterday * Acute anemia- will monitor H&H, transfuse as needed- and Check stool for occult blood- change Famotidine to PPI- GI consult * Prognosis is guarded
[2018-08-14] MEDS: Fish Oil 1,000 MG CAP PO SCH (10:12)
[2018-08-14] MEDS: Docusate Calcium (SURFAK) 240 MG CAP PO SCH (10:12)
--- NOTE | 2018-08-14 10:12 | RAD ---
ONE VIEW CHEST: COMPARISON: 01/27/2018. HISTORY: Pneumonia. FINDINGS: There is an endotracheal tube just beyond the clavicles. There is a stent projecting over the cardia c silhouette. There is atherosclerosis of the aorta. There appear to be bilateral pleural effusions with adjacent parenchymal changes. No pneumothorax. IMPRESSION: Bilateral pleural effusions. Adjacent lung parenchymal changes. POS: [facility]
[2018-08-14] MEDS: Magnesium Oxide 400 MG TAB PO SCH (10:13)
--- NOTE | 2018-08-14 10:15 | PDOC.EVN ---
Event Note - Event Note Event Note: I have spokedn with the patient's daughter Keny, and informed her about the patient's condition. He now has Worsening renal failure, and Acute respiratory failure, and NSTEMI, after being admitted for Pancreatitis. She tells me that her father has not been taking great care of himself, and has not been compliant with his transplant medications, and appointments for his general health. She says he has been depressed since his son, her brother at age 26. She is aware of the severity of his condition after we spoke. She is not sure what he would want with regards to intubation, but informs me that her bother was on life support for a long time before he , so she is very well aware of these situations. She says she plans to call other family regarding his condition. He remains a FULL CODE at this time. ACP time 20 minutes.
--- NOTE | 2018-08-14 10:29 | PRG ---
DATE OF SERVICE: 08/14/2018 SERVICE: Renal Medicine. SUBJECTIVE: Mr. Mccauley is a 72-year-old white male status post renal transplant and was seen by [facility] for an acute kidney injury that was felt to be a hemodynamically mediated renal dysfu nction. An acute event happened last night where the patient went into acute respiratory failure. H e was intubated and placed on ventilator support. This morning, the patient is currently unresponsiv e and on ventilator support. Renal function is worsened, which is to be expected after his acute res piratory failure and hemodynamic instability. He was also started on pressor support and IV hydratio n. We are continuing the salt poor albumin for this patient. PHYSICAL EXAMINATION: VITAL SIGNS: Blood pressure is currently 80/57 with a heart rate of 79, respiratory rate is 30, O2 s at 90%-91%. GENERAL: Patient is unresponsive, intubated on ventilator support. SKIN: Adequate turgor. HEENT: He has pale conjunctivae, anicteric sclerae. NECK: No neck mass, no carotid bruits, no JVD. CHEST: No deformities. LUNGS: Decreased breath sounds. HEART: Normal sinus rhythm. No murmur, no gallops, no rubs. ABDOMEN: Globular, soft, nontender. EXTREMITIES: No edema, no deformities. MEDICATIONS: Of 08/14/2018 was reviewed. LABORATORY DATA: Of 08/14/2018, white count 9.6, hemoglobin 7.6. Sodium 137, potassium 4.5, chlorid e 103, carbon dioxide 11, BUN 43, creatinine of 4.09, glucose 131, phosphorus 7.3, magnesium 4.9. Tr oponin I is 10.3. Lipase greater than 1000. Lactic acid is 14. ASSESSMENT AND PLAN: 1. Acute kidney injury - this is most likely a hemodynamically mediated renal dysfunction due to the hemodynamic instability. Continue to optimize hemodynamic status with this patient. Continue press or support and volume as needed. 2. Status post renal transplant - continue current immunosuppressive regimen. If needed, we can alw ays convert this patient to IV cyclosporine. 3. Acute pancreatitis - supportive care. Consider GI consult. 4. Acute respiratory arrest - patient was intubated and placed on ventilator support. Of interest, his troponin I was also elevated. We may need a Cardiology consult. Overall, prognosis remains guarded. Continue supportive care.
[2018-08-14] MEDS: cycloSPORINE, Modified 100 MG CAP PO SCH (10:52)
--- NOTE | 2018-08-14 11:17 | CT ---
PRELIMINARY REPORT/[facility]/EMERGENTY AFTER-HOURS PROCEDURE CT Head Without Intravenous Contrast CLINICAL HISTORY: 72 years old, male; Signs and symptoms; Altered mental status/memory loss; Confusion or disorientatio n; Patient HX: Code green activation/respiratory distress; Ams/unresponsive TECHNIQUE: Axial computed tomography images of the head/brain without intravenous contrast. COMPARISON: No relevant prior studies available. FINDINGS: No definite acute skull fracture. Included paranasal sinuses are essentially clear. Prominent fluid/opacity involving the mastoid air cells could represent evidence for or chronic infec tion. Suspect a small amount of fluid in the right middle ear cavity. No acute intracranial hemorrhage or mass effect. Ventricle size is normal for age. Prominent vascular calcifications noted in the internal carotid and vertebral basilar systems. There is mild decreased attenuation in the periventricular white matter, likely from microvascular disease. No definite acute infarct by CT. MRI could be more sensitive/specific for detection, as clinically directed. IMPRESSION: No acute intracranial bleed or mass effect. Vascular calcifications and changes of microvascular disease. No definite acute infarct by CT, see above. Right mastoid sinus findings as discussed above. Thank you for allowing us to participate in the care of your patient. Dictated and Authenticated by: Petar Washington MD 08/14/2018 2:08 AM Central Time ([place] & [place]) FINAL REPORT HEAD CT WITHOUT CONTRAST: HISTORY: Altered mental status. Unresponsive patient. FINDINGS: This report is in agreement with the preliminary report by [facility]. No acute intracranial process. POS: [facility]
--- NOTE | 2018-08-14 11:18 | CT ---
PRELIMINARY REPORT/[facility]/EMERGENTY AFTER-HOURS PROCEDURE CT Chest Without Intravenous Contrast CLINICAL HISTORY: 72 years old, male; Signs and symptoms; Dyspnea and shortness of breath; Patient HX: Code green activ ation/respiratory distress; Ams/unresponsive TECHNIQUE: Axial computed tomography images of the chest without intravenous contrast. Coronal reformatted images were created and reviewed. COMPARISON: No relevant prior studies available. FINDINGS: Lungs: See below. Pleural space: Small to moderate bilateral pleural effusions with compressive atelectasis. No pneumot horax. Heart: Aortic valve prosthesis in place. Bones/joints: Multilevel degenerative changes. No acute fracture. No dislocation. Soft tissues: Unremarkable. Vasculature: Atherosclerotic calcification of coronary arteries. No thoracic aortic aneurysm. Lymph nodes: Nonspecific mediastinal lymph nodes present. Gallbladder and bile ducts: Status post cholecystectomy. Pancreas: Diffuse inflammatory changes involving the visualized pancreas. Kidneys and ureters: Both kidneys are atrophic. Intraperitoneal space: Incompletely imaged ascites is present. Tubes, lines and devices: Endotracheal tube in place with the tip approximately 3 cm from the som. IMPRESSION: 1. Small to moderate bilateral pleural effusions with compressive atelectasis. 2. Inflammatory changes around the pancreas most suspicious for acute pancreatitis. 3. Atherosclerotic calcification of coronary arteries. 4. Incompletely imaged ascites. Thank you for allowing us to participate in the care of your patient. Dictated and Authenticated by: Mitchell Camejo MD 08/14/2018 2:47 AM Central Time ([place] & [place]) FINAL REPORT CHEST CT WITHOUT CONTRAST: HISTORY: Shortness of breath and dyspnea. COMPARISON: None. FINDINGS: This report is in agreement with the preliminary report by [facility]. Small to moderate bilateral effusion s with adjacent lung consolidation due to atelectasis or pneumonia. Mild peripancreatic inflammatory changes. Correlate clinically for pancreatitis. There does appear to be perihepatic fluid. Gallbl adder is surgically absent. Atrophic kidneys are noted. POS: [facility]
[2018-08-14] MEDS ORDERED: Hydrocortisone Sod Succ/PF 100 mg/2 ml Vial IVP SCH (12:00)
[2018-08-14 12:36] VITALS: BP 128/93
[2018-08-14 12:45] VITALS: TEMP 98.7
[2018-08-14] MEDS ORDERED: Morphine 4 MG/ML VIAL ONE (14:35)
--- NOTE | 2018-08-14 14:39 | PDOC.EVN ---
Event Note - Event Note Event Note: The patient's daughter is present and we spoke again regarding her father. She says he would not want to be on life support, and would like to withdraw care. Dr. Simms has been notified, and is in agreement. Medications will be available for pain, and air hunger. Will discontinue Ventilator support now.
--- NOTE | 2018-08-14 15:57 | CON ---
DATE OF CONSULTATION: 08/14/2018 DATE OF ADMISSION: 08/12/2018 CARDIOLOGY CONSULT NOTE INDICATION FOR CONSULTATION: A 72-year-old gentleman with a history of acute pancreatitis who develo ped a sudden onset of mental status changes last p.m. EKG was performed which showed deep T-wave inv ersions. We were called for concern of the EKG changes. He also had abnormal cardiac enzymes with t roponin I of 9.4, which increased up to 10.3, MB was 22 and increased to 41. He had multiple other a bnormalities and laboratory data appears to have metabolic acidosis. He had the acute mental status change. We were asked to see the patient due to the abnormal cardiac enzymes and abnormal EKG. HISTORY OF PRESENT ILLNESS: This is a very pleasant 72-year-old gentleman who has a history of pancr eatitis in the past and he was again admitted with acute pancreatitis. He was talking to the nurse a nd apparently had developed acute mental status changes. CT scan was performed. In the interim, the patient required intubation. EKG showed deep T-wave inversions in the anterior leads and also some T-wave inversion in the lateral leads. The deep T-wave inversions appeared to be neurologic in natur e, did not appear to be due to ischemia. Echocardiogram today did show ejection fraction of 60%-65% with mitral annular calcifications and significant left ventricular hypertrophy with a normal ejectio n fraction with mild tricuspid and mitral valve regurgitation. It appears to have a prosthetic aorti c valve in place, it is a somewhat technically difficult study due to body habitus of the patient. C T scan does remain unremarkable for any acute cardiac problems. He does have some coronary artery ca lcifications, but with normal ejection fraction it is unlikely he has had any acute cardiac events. This gentleman has undergone renal transplant x2 due to IgA nephropathy, but he continues to drink al cohol. The CT scan did not show any acute abdominal changes, but there was no specific abdominal CT scan performed and I believe he did have a CT scan of the chest. There is no evidence of pulmonary e mboli and his brain CT scan was also unremarkable for any acute episodes. At this time from a cardia c standpoint, I will continue to follow the patient. He is at this time, still unresponsive. He is on the ventilator. He has not been sedated. He is still unresponsive, despite having no sedations. His heart rate is in the 80s and shows sinus rhythm. Blood pressure has been fluctuating and is hyp otensive. He has been 85/27, earlier was 63/24. His heart rate is in the 80s and shows a sinus rhyt hm, O2 saturation 96%. PAST MEDICAL HISTORY: Significant for the renal transplant x2, ankle surgery, shoulder surgery, hist ory of hypertension, degenerative joint disease and alcohol abuse. SOCIAL HISTORY: I believe patient is . He has one child alive and well. FAMILY HISTORY: Noncontributory. ALLERGIES: He is allergic to RAPAMUNE and SIROLIMUS. MEDICATIONS PRIOR TO ADMISSION: Included vitamin D, minerals, magnesium, fenofibrate, amlodipine, at enolol, docusate and aspirin. REVIEW OF SYSTEMS: Not obtainable. PHYSICAL EXAMINATION: GENERAL: Reveals blood pressure of 85/27, heart rate is 84, O2 saturation 96%, respiratory rate of t he ventilator is roughly 28 beats per minute. HEENT: Shows head to be normocephalic and atraumatic. Carotid pulses are present. I did not hear a ny bruits. CHEST: Clear to auscultation without rales, rhonchi or wheezing. CARDIOVASCULAR: Exam reveals a regular rate and rhythm at this time. There were no significant murm urs, heaves, thrills, bruits or rubs noted. ABDOMEN: Shows some mild distention. Minimal bowel sounds are present and somewhat tympanic. It ca nnot elicit any pain, but the patient is unresponsive, cannot palpate any masses. He has well-healed surgical incisions. EXTREMITIES: Show some discoloration with mottling of the feet, but popliteal pulses are present, bu t I cannot palpate pedal pulses. SKIN: Warm and dry at this time, but feet were cool earlier. Apparently according to the nurse, the patient at this time is unresponsive. LABORATORY DATA AND IMAGING DATA: Shows hemoglobin of 7.6 with hematocrit of 23. White blood cell c ount was 24,000, now down to 9.6 thousand, platelet count was 38,000. Sodium is 137, potassium 4.5, blood sugar was 135, creatinine 4.09. Lipase was over 1000. His INR is 4.1, AST is 162. Previously , he has had AST elevation of 549 back in 2017, most likely with another acute episode of pancreatiti s. His EKG shows normal sinus rhythm with deep symmetric T-wave inversions which appear to be neurol ogic in nature. There is no ST segment elevation. His echo shows evidence of left ventricular hyper trophy, some of these changes within the lateral leads may be due to left ventricular hypertrophy. IMPRESSION AND PLAN: 1. Acute mental status changes most likely some neurological event has occurred. 2. If the patient remains unresponsive, he will need to undergo an MRI. A repeat CT scan of the shandra rological evaluation is obviously indicated if he does not improve significantly. 3. Acute pancreatitis and sepsis. He may have some other abdominal issue which is involved in this process. His hemoglobin when he arrived on 08/13/2018 was 10.1, this morning is 7.6. He may have de veloped an acute GI bleed or some perforation of the abdomen, it is unclear. The patient does appear to be septic. 4. Abnormal EKG with abnormal cardiac enzymes. This may be due to his overall metabolic problems wi th his acute pancreatitis. We will need to evaluate him when he is more stable. He has no history i n the past that I can determine where he has any coronary artery disease in the past. 5. Acute renal failure. This is being dealt with by the senior data developer. In 12/2016, creatinine was 1 .46, when he was seen in 01/2017, it was 0.87. When the patient arrived here on this admission, the creatinine was 3.35 and then increased up to 4.09. 6. Anemia. The patient has not had a bowel movement, but may have developed a GI bleed. In the int erim, we will need to continue to follow the patient very closely. At this time, from a cardiac erna dpoint, overall, he does appear to be relatively stable except for the hypotension and the abnormal c ardiac enzymes. EKG does not indicate any acute cardiac ischemia at this time. We will be more than happy to follow the patient with you.
[2018-08-14] MEDS ORDERED: Pantoprazole 40 MG VIAL IVP SCH (21:00)
[2018-08-14] MEDS ORDERED: Atorvastatin Calcium 40 MG TAB PO SCH (21:00)
--- NOTE | 2018-08-14 22:04 | DIS ---
SUMMARY DATE OF ADMISSION: 08/12/2018 DATE OF : 08/14/2018 DIAGNOSES: Include, 1. Acute pancreatitis, acute respiratory failure, acute on chronic renal failure. 2. Non-ST elevation myocardial infarction. 3. Acute anemia. 4. Liver failure. 5. History of alcohol abuse. PROCEDURES DONE DURING ADMISSION: The patient had a CT scan of the brain, which was negative for any acute intracranial process. The patient had a CT scan of the chest showing [id number] bilate ral pleural effusions with some compressive atelectasis, some inflammatory changes around the pancrea s suspicious for acute pancreatitis incompletely imaged ascites. The patient also had an echocardiog diana showing an ejection fraction estimated at 60%-65%, left ventricular hypertrophy. HOSPITAL COURSE: Mr. Mccauley was a 72-year-old gentleman who was transferred from [facility] with complaints of severe abdominal pain radiating to the back. He apparently had a CT scan done t here, which it was determined that there was some inflammation around the pancreas, this was suspicio us for pancreatitis. He was admitted to our facility and started on IV fluids as well as bowel rest. It was also noted that he was in acute renal failure. He has a history of kidney transplant previo usly and it was noted that his creatinine was 3.35. Nephrology was consulted in addition to the IV f luids. He was started on salt-poor albumin. The patient's symptoms remained relatively stable with regards to his pain the following morning; however, later that evening around 9:00 p.m., the patient was evaluated by the nurse. He seemed a bit confused. It appears she stepped out of the room for a minute and returned and found him to be in agonal respirations as well as hypotensive. A code was ca lled, and the patient was transferred to the ICU. He was intubated. There was concern that there wa s an acute neurological event given the rapidity with which the patient's symptoms changed. A CT sca n of the brain as well as chest was done, which did not show any significant abnormalities. He had l ab work, which demonstrated an elevated troponin as well as an elevation in his liver function tests as well as a coagulopathy with an INR of 4.1. He was also extremely acidotic. With the pH was 6.9, he was started on lactated ringer solution and given bicarbonate IV. Cardiology was consulted. The following day, I discussed the situation with the patient's daughter over the phone. She informed me that the patient had been more or less noncompliant with his medications for his renal transplant as well as with followup visits to the physician. She says his condition had been declining ever since his son, which was her brother when he was only 26 years old. She stated that the patient WOUL D NOT WANT TO LIVE ON LIFE SUPPORT and requested that the patient be removed from the ventilator and terminally extubated. She says that she understood the consequences as this had to be done with her brother as well. For that he was on life support for an extended period of time before he . She says that her father seemed to have lost the will to live in the recent months to years. Therefore, the patient was taken off the life support, medications were made available for pain and air hunger and the patient at 1451, likely as a result of complications of acute alcoholic pancreatitis and alcoholic liver disease.
[2018-08-15] MEDS ORDERED: Vancomycin HCl 1 GM in Premix Bag 1 BAG IVPB SCH (03:00)
--- NOTE | 2018-08-15 09:09 | CON ---
DATE OF CONSULTATION: 08/14/2018 HISTORY: This is a 72-year-old gentleman, who was admitted to the hospital on 08/13/2018 about 08:00 in the morning with a diagnosis of pancreatitis. He did complain of back pain. He was transferred from [place]. He has been in this institution before, in fact last year, with a similar diagnosis. Last night, abo ut midnight, apparently nurse awoke and summoned the doctor to see the patient since he was having so me agonal respiration. Sats per the note for code blue was 94. He was hypotensive. A right femoral line was inserted by the ER physician. He began to have agonal respiration and was intubated. It a ppears did the patient had a cardiac event. CT chest was ordered along with a chest x-ray. I do not see any obvious pulmonary emboli. He was st arted on IV heparin drip and Levophed, because of concern about pulmonary emboli versus acute myocard ial infarction. His troponin was elevated. He is presently intubated, ventilated, sedated, unresponsive. The patient has a longstanding history as per his previous records for chronic alcoholism, drinks up to 5 drinks a day, unclear whether he is drinking still. There are no family members present. Histo ry of chronic renal failure. Ongoing epigastric abdominal pain. PAST MEDICAL HISTORY: Extensively outlined, alcoholic pancreatitis, chronic pain, urinary retention, chronic renal failure, status post 2 renal transplant. PAST SURGICAL HISTORY: Past surgeries have included a skin cancer, cholecystectomy, 2 renal transpla nts, status post access, ankle surgery, shoulder surgery. MEDICATIONS: His medicines from home had included low dose prednisone 5, cyclosporine 100 mg twice a day, ranitidine 150, aspirin, amlodipine 5. ALLERGIES: None. TOBACCO: Apparently, unknown at this stage. REVIEW OF SYSTEMS: Unobtainable. PHYSICAL EXAMINATION: VITAL SIGNS: Blood pressure is 80/47, on Levophed; pulse 78; sats are 91; respiratory rate is 30. CHEST: Decreased breath sounds bilaterally without any wheezing. CARDIAC: Normal S1 and S2. No gallops. ABDOMEN: Soft and distended. NEUROLOGICAL: Sedated. EXTREMITIES: Chronic stasis edema. IMPRESSION: 1. Status post what appears to be mainly a respiratory arrest. 2. Abnormal EKG and elevated troponin. 3. Renal failure, marked left shift. 4. Chronic pancreatitis. 5. Abnormal chest x-ray with bilateral pleural effusion. He is on meropenem for presumed pancreatitis. Baseline creatinine is 4, BUN is 42. His blood gases show a pO2 of 92, pCO2 of , pH 7.26 on 100%. White count 15,000, H and H and 26, platelet count is only 51. INR is 4.1. His ammonia level was borderline elevated at 91. His bilirubin was 4.3 and his AST is 1 62. PLAN: He has got multiorgan failure at this stage. Try to maintain systolic blood pressure 100. Ve nt is being adjusted. Continue antibiotics, stress dose of steroids. Await input from GI. Cardiology, echo is being ordered. I am discontinuing his heparin. He has mul tiple reasons not to be on heparin, thrombocytopenic. His INR is 4. Long prognosis is grave. We will discuss with family when they arrive. This is a 45-minute critical care time.
== END 2018-08-14 15:50 | disposition expired | DRG 871 ==
LOC: ERS 19:38 → 2NO 22:32 → CCU 08-14 01:13
PROVIDERS: ADMIT Internal Medicine; ATTEND Internal Medicine
PROC: 0BH17EZ Insertion of Endotracheal Airway into Trachea, Via Natural or Artificial Opening (ICD-10-PCS; principal; 2018-08-14)
PROC: 5A1935Z Respiratory Ventilation, Less than 24 Consecutive Hours (ICD-10-PCS; 2018-08-14)
DX: A41.9 Sepsis, unspecified organism (principal); K85.20 Alcohol induced acute pancreatitis without necrosis or infection; I21.4 Non-ST elevation (NSTEMI) myocardial infarction; J96.01 Acute respiratory failure with hypoxia; R18.8 Other ascites; N17.9 Acute kidney failure, unspecified; J90 Pleural effusion, not elsewhere classified; J98.11 Atelectasis; Z94.0 Kidney transplant status; D68.9 Coagulation defect, unspecified; E87.2 Acidosis; N02.8 Recurrent and persistent hematuria with other morphologic changes; K72.90 Hepatic failure, unspecified without coma; R65.20 Severe sepsis without septic shock; N18.9 Chronic kidney disease, unspecified; D64.9 Anemia, unspecified; I51.7 Cardiomegaly; K70.9 Alcoholic liver disease, unspecified; I08.1 Rheumatic disorders of both mitral and tricuspid valves; Z95.2 Presence of prosthetic heart valve; I12.9 Hypertensive chronic kidney disease with stage 1 through stage 4 chronic kidney disease, or unspecified chronic kidney disease; M19.90 Unspecified osteoarthritis, unspecified site; F10.10 Alcohol abuse, uncomplicated; Y90.9 Presence of alcohol in blood, level not specified; E87.5 Hyperkalemia
CPT/HCPCS: 36415; 36416; 70450; 71045; 71250; 80061; 80069; 80158; 81001; 82140; 82533; 82553; 82570; 82805; 83605; 83690; 83735; 84100; 84300; 84484; 85025; 85610; 85730; 87040; 93005; 93010; 93306; 94002; 96361; 96374; 96375; J0360; J1265; J1644; J1720; J2060; J2185; J2270; J2405; J3010; J3370; J3411; J7042; J7050; J7502; P9045; P9047; S0028